=== PATIENT | male | born 1950 | race Native Hawaiian/Other Pacific Islander ===

== ENCOUNTER 2018-02-08 09:12 | Outpatient (CLI) | payer MEDICARE, OTHER | END 2018-02-08 09:13 | disposition home or self-care (01) | LOC: SC 09:12 | PROVIDERS: ATTEND Internal Medicine Pulmonary Disease | DX: R09.89 Other specified symptoms and signs involving the circulatory and respiratory systems (principal); R06.83 Snoring | CPT/HCPCS: 99203; G0463; 99212 ==

== ENCOUNTER 2018-03-19 19:27 | Outpatient (CLI) | payer MEDICARE, OTHER | END 2018-03-19 19:28 | disposition home or self-care (01) | LOC: SC 19:27 | PROVIDERS: ATTEND Internal Medicine Pulmonary Disease | DX: G47.33 Obstructive sleep apnea (adult) (pediatric) (principal); G47.61 Periodic limb movement disorder | CPT/HCPCS: 95810 ==

== ENCOUNTER 2018-04-06 09:09 | Outpatient (CLI) | payer MEDICARE, OTHER | END 2018-04-06 09:10 | disposition home or self-care (01) | LOC: SC 09:09 | PROVIDERS: ATTEND Nurse Practitioner Family | DX: G47.33 Obstructive sleep apnea (adult) (pediatric) (principal); G47.61 Periodic limb movement disorder | CPT/HCPCS: 99214; G0463; 99212 ==

== ENCOUNTER 2021-03-11 06:15 | Day surgery (SDC) | payer MEDICARE, OTHER ==
[2021-03-11] MEDS ORDERED: LACTATED RINGERS 1,000 ML IV ONE (06:21)
[2021-03-11] MEDS ORDERED: fentaNYL 250 MCG/5 ML VIAL ONE (08:33)
[2021-03-11] MEDS ORDERED: MIDAZOLAM 2 MG/2 ML VIAL ONE ×2 (08:33→08:53)
[2021-03-11] MEDS ORDERED: LACTATED RINGERS 300 ML IV ONE (09:09)
[2021-03-11 09:48] VITALS: BP 129/92
== END 2021-03-11 06:16 | disposition home or self-care (01) ==
LOC: SDS 06:15
PROVIDERS: ATTEND Surgery
PROC: 0DBP8ZZ Excision of Rectum, Via Natural or Artificial Opening Endoscopic (ICD-10-PCS; principal; 2021-03-11 07:30)
DX: Z12.11 Encounter for screening for malignant neoplasm of colon (principal); K62.1 Rectal polyp; K64.8 Other hemorrhoids; K57.30 Diverticulosis of large intestine without perforation or abscess without bleeding
CPT/HCPCS: 45380; J3010; J7120